=== PATIENT | female | born 1980 | race Hispanic/Latino ===

== ENCOUNTER 2020-06-14 22:27 | Inpatient (IN) | payer MEDICAID, OTHER ==
[~2020-06-14] VITALS: Ht 165.1 cm; Wt 89.8 kg
[2020-06-14] MEDS ORDERED: DICYCLOMINE HCL 10 MG/ML 2ML AMP IM ONE (23:04)
[2020-06-14] MEDS ORDERED: ONDANSETRON HCL 4 MG/2 ML VIAL ONE (23:04)
[2020-06-14] MEDS ORDERED: MAG HYDROX/AL HYDROX/SIMETH ES 30 ML SUSP UDCUP ONE (23:04)
[2020-06-14] MEDS ORDERED: LIDOCAINE HCL 2% VISCOUS 15 ML UDCUP ONE (23:04)
[2020-06-14] MEDS ORDERED: FAMOTIDINE/PF 20 MG/2 ML VIAL IV ONE (23:05)
[2020-06-14] MEDS ORDERED: ACETAMINOPHEN 325 MG TAB ONE (23:05)
[2020-06-14 23:12] LABS: HCG,QUAL RESULT NEGATIVE (NEGATIVE)
[2020-06-14 23:12] LABS: CREATININE 0.8 mg/dL (0.5-1.5); POTASSIUM 3.5 mmol/L (3.5-5.1)
[2020-06-14 23:13] LABS: APPEARANCE,URINE Clear (CLEAR); BILIRUBIN,URINE Moderate (NEGATIVE); COLOR,URINE Dark Yellow (YELLOW); GLUCOSE, URINE (UA) Negative (NEGATIVE); KETONES,URINE Trace mg/dL (NEGATIVE); LEUKOCYTE ESTERASE ,URINE Small (NEGATIVE); NITRATE,URINE Positive (NEGATIVE); OCCULT BLOOD,URINE Negative (NEGATIVE); PROTEIN,URINE POS 1+ mg/dL (NEGATIVE)
[2020-06-14 23:17] LABS: ALBUMIN 3.4 g/dL (3.5-5.0); BILIRUBIN,TOTAL 1.8 mg/dL (0.2-1.0); TOTAL PROTEIN, SERUM 7.9 g/dL (6.0-8.3)
[2020-06-14] MEDS ORDERED: CEFTRIAXONE SODIUM 1 GM ONE (23:18)
[2020-06-14 23:32] LABS: BASOPHILS % (AUTO) 0.2 % (0.0-5.0); EOSINOPHILS % (AUTO) 1.3 % (0.0-8.0); HEMATOCRIT 22.3 % (36-48); LYMPHOCYTES % (AUTO) 13.2 % (21.0-51.0); MEAN CORPUSCULAR HEMOGLOBIN 16.6 pg (27.0-33.0); MEAN CORPUSCULAR HGB CONC 25.6 g/dL (32.0-36.0); MEAN CORPUSCULAR VOLUME 64.8 fL (79-99); MONOCYTES % (AUTO) 10.8 % (3.0-13.0); NEUTROPHILS % (AUTO) 74.1 % (40.0-77.0); PLATELET COUNT (AUTO) 226 K/uL (130-400); RED BLOOD CELL COUNT(AUTO) 3.44 MIL/uL (4.00-5.50); RED CELL DISTRIBUTION WIDTH 20.8 % (11.0-15.5)
[2020-06-14 23:46] LABS: BACTERIA,URINE Few /HPF (None Seen); RBC,URINE 0-1 /HPF (0-1)
[2020-06-14 23:47] LABS: HYALINE CASTS, URINE 0-1 /LPF (0-1 /LPF); MUCUS,URINE Moderate LPF (None Seen)
[2020-06-15] MEDS ORDERED: PANTOPRAZOLE 40 MG/VIAL ONE ×2 (00:08→08:28)
[2020-06-15 00:14] LABS: INR 1.05 (0.85-1.15); PROTHROMBIN TIME 11.4 SEC (9.6-11.6)
[2020-06-15 00:15] LABS: PARTIAL THROMBOPLASTIN TIME 23.8 SEC (26.3-35.5)
[2020-06-15] MEDS ORDERED: IOHEXOL 350 MG/ML 100ML INFUS..BTL IV ONE (00:39)
[2020-06-15] MEDS ORDERED: SODIUM CHLORIDE 0.9% 250 ML IV ONE ×4 (02:41→11:49)
[2020-06-15] MEDS ORDERED: MORPHINE SULFATE 4 MG/1ML SYG IV PRN (02:45)
[2020-06-15] MEDS ORDERED: ONDANSETRON HCL 4 MG/2 ML VIAL IV PRN (02:45)
[2020-06-15] MEDS ORDERED: ACETAMINOPHEN 325 MG TAB PO PRN ×2 (02:45)
[2020-06-15] MEDS ORDERED: LACTULOSE 20 GM/30 ML UDCUP PO PRN (02:45)
[2020-06-15] MEDS ORDERED: DiphenhydrAMINE HCL 50 MG/ML VIAL IV PRN (02:45)
[2020-06-15] MEDS ORDERED: MAG HYDROX/AL HYDROX/SIMETH ES 30 ML SUSP UDCUP PO PRN (02:45)
[2020-06-15] MEDS ORDERED: LORAZEPAM 1 MG TABLET PO PRN (03:00)
[2020-06-15 03:21] LABS: RETICULOCYTE % (AUTO) 1.77 % (0.42-2.23)
[2020-06-15] MEDS ORDERED: SODIUM CHLORIDE 0.9% 1000ML 1,000 ML IV SCH (03:30)
[2020-06-15] MEDS ORDERED: ACETAMINOPHEN 325 MG TAB ONE (04:48)
[2020-06-15] MEDS ORDERED: LORAZEPAM 2 MG/ML 1 ML VIAL ONE (06:22)
[2020-06-15] MEDS ORDERED: MORPHINE SULFATE 2 MG/ML 1ML SYG ONE (06:22)
[2020-06-15] MEDS ORDERED: PHARMACY COMMUNICATION MISC PRN (08:30)
[2020-06-15] MEDS ORDERED: CHLORDIAZEPOXIDE HCL 25 MG CAP PO PRN (08:30)
[2020-06-15] MEDS: PANTOPRAZOLE 40 MG/VIAL IVP SCH ×2 (09:00→21:45)
[2020-06-15] MEDS ORDERED: CEFTRIAXONE SODIUM 500 MG VIAL IV SCH (09:00)
[2020-06-15 09:19] LABS: BASOPHILS % (AUTO) 0.3 % (0.0-5.0); EOSINOPHILS % (AUTO) 0.9 % (0.0-8.0); HEMATOCRIT 24.7 % (36-48); LYMPHOCYTES % (AUTO) 18.4 % (21.0-51.0); MEAN CORPUSCULAR HEMOGLOBIN 18.9 pg (27.0-33.0); MEAN CORPUSCULAR HGB CONC 27.5 g/dL (32.0-36.0); MEAN CORPUSCULAR VOLUME 68.8 fL (79-99); MONOCYTES % (AUTO) 11.7 % (3.0-13.0); NEUTROPHILS % (AUTO) 68.3 % (40.0-77.0); PLATELET COUNT (AUTO) 207 K/uL (130-400); RED BLOOD CELL COUNT(AUTO) 3.59 MIL/uL (4.00-5.50); WHITE BLOOD COUNT (AUTO) 9.9 K/uL (4.8-10.8)
[2020-06-15 09:40] LABS: CREATININE 0.7 mg/dL (0.5-1.5); POTASSIUM 3.3 mmol/L (3.5-5.1)
[2020-06-15 09:46] LABS: % IRON SATURATION 24.9 % (22-44)
[2020-06-15 10:00] VITALS: BP 127/56
[2020-06-15] MEDS: THIAMINE HCL 100 MG, FOLIC ACID 1 MG, M.V.I. IV [ADULT] 10 ML in SODIUM CHLORIDE 0.9% 1... IV SCH (10:33)
[2020-06-15 16:30] VITALS: BP 117/41
[2020-06-15 17:08] LABS: HEMATOCRIT 26.9 % (36-48)
[2020-06-15 20:00] VITALS: BP 101/54
[2020-06-15] MEDS: CEFTRIAXONE SODIUM 1 GM IV SCH (21:44)
[2020-06-15] MEDS: ACETAMINOPHEN-CODEINE 300/30MG TAB PO PRN (21:46)
[2020-06-15 21:56] LABS: HEMATOCRIT 26.9 % (36-48)
[2020-06-15 23:47] VITALS: BP 110/72
[2020-06-16 04:12] VITALS: BP 117/65
[2020-06-16 05:45] LABS: BASOPHILS % (AUTO) 0.3 % (0.0-5.0); EOSINOPHILS % (AUTO) 2.6 % (0.0-8.0); HEMATOCRIT 26.7 % (36-48); LYMPHOCYTES % (AUTO) 16.8 % (21.0-51.0); MEAN CORPUSCULAR HEMOGLOBIN 20.1 pg (27.0-33.0); MEAN CORPUSCULAR HGB CONC 28.1 g/dL (32.0-36.0); MEAN CORPUSCULAR VOLUME 71.4 fL (79-99); MONOCYTES % (AUTO) 11.4 % (3.0-13.0); NEUTROPHILS % (AUTO) 68.4 % (40.0-77.0); PLATELET COUNT (AUTO) 194 K/uL (130-400); RED BLOOD CELL COUNT(AUTO) 3.74 MIL/uL (4.00-5.50); RED CELL DISTRIBUTION WIDTH 23.5 % (11.0-15.5); WHITE BLOOD COUNT (AUTO) 9.6 K/uL (4.8-10.8)
[2020-06-16 05:59] LABS: CREATININE 0.6 mg/dL (0.5-1.5); POTASSIUM 3.4 mmol/L (3.5-5.1)
[2020-06-16 06:49] VITALS: BP 120/63
[2020-06-16] MEDS: ACETAMINOPHEN-CODEINE 300/30MG TAB PO PRN ×2 (09:21→21:36)
[2020-06-16] MEDS: PANTOPRAZOLE 40 MG/VIAL IVP SCH ×2 (09:22→21:23)
[2020-06-16] MEDS: THIAMINE HCL 100 MG, FOLIC ACID 1 MG, M.V.I. IV [ADULT] 10 ML in SODIUM CHLORIDE 0.9% 1... IV SCH (11:54)
[2020-06-16 12:00] VITALS: BP 116/67
[2020-06-16 16:00] VITALS: BP 119/71
[2020-06-16 18:08] LABS: HEPATITIS A ANTIBODY IGM Negative (Negative); HEPATITIS B CORE IGM Negative (Negative); HEPATITIS Bs ANTIGEN SCREEN P Negative (Negative)
[2020-06-16 20:00] VITALS: BP 111/66
[2020-06-16] MEDS: CEFTRIAXONE SODIUM 1 GM IV SCH (21:26)
[2020-06-17 00:08] VITALS: BP 116/62
[2020-06-17 03:44] LABS: BASOPHILS % (AUTO) 0.2 % (0.0-5.0); EOSINOPHILS % (AUTO) 3.2 % (0.0-8.0); HEMATOCRIT 26.3 % (36-48); LYMPHOCYTES % (AUTO) 18.5 % (21.0-51.0); MEAN CORPUSCULAR HEMOGLOBIN 20.5 pg (27.0-33.0); MEAN CORPUSCULAR HGB CONC 28.5 g/dL (32.0-36.0); MEAN CORPUSCULAR VOLUME 72.1 fL (79-99); MONOCYTES % (AUTO) 13.1 % (3.0-13.0); NEUTROPHILS % (AUTO) 64.6 % (40.0-77.0); PLATELET COUNT (AUTO) 202 K/uL (130-400); RED BLOOD CELL COUNT(AUTO) 3.65 MIL/uL (4.00-5.50); RED CELL DISTRIBUTION WIDTH 24.7 % (11.0-15.5); WHITE BLOOD COUNT (AUTO) 8.3 K/uL (4.8-10.8)
[2020-06-17 03:55] LABS: CREATININE 0.7 mg/dL (0.5-1.5); POTASSIUM 3.8 mmol/L (3.5-5.1)
[2020-06-17 04:08] VITALS: BP 125/74
[2020-06-17 07:00] VITALS: BP 120/75
[2020-06-17] MEDS: PANTOPRAZOLE 40 MG/VIAL IVP SCH (08:04)
[2020-06-17] MEDS: ACETAMINOPHEN-CODEINE 300/30MG TAB PO PRN (08:08)
[2020-06-17] MEDS ORDERED: FERR325T22 PO (09:01)
[2020-06-17 11:00] VITALS: BP 103/55
[2020-06-17] MEDS ORDERED: ACET1TAB25 PO (13:33)
== END 2020-06-17 14:14 | disposition home or self-care (01) | DRG 690 ==
LOC: EDH 22:27 → EDHIP 22:28 → 4DH 06-15 10:02
PROVIDERS: ADMIT Internal Medicine; ATTEND Internal Medicine
PROC: 30233N1 Transfusion of Nonautologous Red Blood Cells into Peripheral Vein, Percutaneous Approach (ICD-10-PCS; principal; 2020-06-15)
DX: N39.0 Urinary tract infection, site not specified (principal); D62 Acute posthemorrhagic anemia; F14.20 Cocaine dependence, uncomplicated; R19.00 Intra-abdominal and pelvic swelling, mass and lump, unspecified site; D64.9 Anemia, unspecified; F10.20 Alcohol dependence, uncomplicated; K80.20 Calculus of gallbladder without cholecystitis without obstruction; E66.9 Obesity, unspecified; Z68.32 Body mass index [BMI] 32.0-32.9, adult; F17.210 Nicotine dependence, cigarettes, uncomplicated; K76.0 Fatty (change of) liver, not elsewhere classified; Z20.822 Contact with and (suspected) exposure to COVID-19; N83.9 Noninflammatory disorder of ovary, fallopian tube and broad ligament, unspecified
CPT/HCPCS: 36415; 36430; 71260; 74177; 76705; 76857; 80048; 80053; 80074; 81001; 81025; 82105; 82270; 82378; 82607; 82728; 83540; 83550; 83605; 83690; 84484; 84703; 85014; 85018; 85025; 85610; 85730; 86304; 86701; 86850; 86900; 86901; 86923; 87040; 87088; 87390; 87426; 87804; 93005; C9113; G0378; J0500; J0696; J2060; J2405; J3411; J3490; J7030; J7050; P9016; Q9967; U0003